=== PATIENT | female | born 1970 | race Caucasian/White ===

== ENCOUNTER 2018-06-23 08:07 | Outpatient (CLI) | payer BC | END 2018-06-23 08:08 | disposition home or self-care (01) | LOC: BICMAMMO 08:07 | PROVIDERS: ATTEND Obstetrics & Gynecology | DX: Z12.31 Encounter for screening mammogram for malignant neoplasm of breast (principal); Z80.3 Family history of malignant neoplasm of breast | CPT/HCPCS: 77063; 77067 ==

== ENCOUNTER 2019-01-08 20:27 | Emergency (ER) | payer BC ==
[2019-01-08 21:07] LABS: #Basophils 0.1 thou/uL (0.0-0.2); #Eosinphils 0.3 thou/uL (0.0-0.7); #Lymphocytes 3.2 thou/uL (1.20-3.40); #Monocytes 0.7 thou/uL (0.11-0.59); #Neutrophils 4.3 thou/uL (1.40-6.50); %Basophils 1.4 % (0.0-1.0); %Eosinophils 3.9 % (0.0-10.0); %Lymphocytes 37.1 % (21.0-51.0); %Monocytes 7.9 % (0.0-10.0); %Neutrophils 49.7 % (42.0-75.0); Hemoglobin 11.2 g/dL (12.0-16.0); Mean Corpuscular HGB CONC 32.8 g/dL (32.0-36.0); Mean Corpuscular Volume 79.3 fL (78.0-98.0); Mean Platelet Volume 8.9 fL (7.4-10.4); Platelet Count 348 thou/uL (130-400); RBC Distribution Width 14.7 % (11.5-14.5); White Blood Cell (WBC) Count 8.7 thou/uL (4.8-10.8)
--- NOTE | 2019-01-08 21:19 | RAD ---
CHEST ONE VIEW: 01/08/19 HISTORY: Chest pain. COMPARISON: None. FINDINGS: Lungs are clear. No pneumothorax or effusion. The cardiac silhouette and mediastinal contours are wit hin normal limits. IMPRESSION: No acute intrathoracic abnormality. POS: [facility]
[2019-01-08 21:29] LABS: ALT (SGPT) 12 U/L (8-55); AST (SGOT) 13 U/L (5-34); Albumin 4.4 g/dL (3.5-5.0); Alkaline Phosphatase 59 U/L (40-150); Anion Gap 9 mmol/L (10-20); BUN (Urea Nitrogen) 12 mg/dL (7.0-18.7); Bilirubin, Total 0.2 mg/dL (0.2-1.2); CK (CPK) 76 U/L (29-168); Calc. Creatinine Clearance 0 mL/min (70-130); Calcium 9.6 mg/dL (7.8-10.44); Carbon Dioxide 25 mmol/L (22-29); Chloride 106 mmol/L (98-107); Estimated GFR-MDRD 55; Globulin 3.5 g/dL (2.4-3.5); Glucose 89 mg/dL (70-105); Lipase 48 U/L (8-78); Potassium 3.2 mmol/L (3.5-5.1); Protein, Total 7.9 g/dL (6.0-8.3); Sodium 137 mmol/L (136-145)
== END 2019-01-08 22:30 | disposition home or self-care (01) ==
LOC: ERS 20:27
DX: R07.89 Other chest pain (principal); F90.9 Attention-deficit hyperactivity disorder, unspecified type; Z79.899 Other long term (current) drug therapy
CPT/HCPCS: 71045; 80053; 82550; 83690; 84484; 85025; 93005; 94760

== ENCOUNTER 2019-08-04 08:06 | Outpatient (CLI) | payer BC ==
--- NOTE | 2019-08-04 08:45 | MMO ---
Bilateral MAMMO Bilat Screen [facility]. CLINICAL HISTORY: Patient is 48 years old and is seen for screening. The patient has the following family history of breast cancer: 2 paternal aunts. The patient has no personal history of cancer. VIEWS: The views performed were: bilateral craniocaudal with tomosynthesis and bilateral mediolateral oblique with tomosynthesis. FILMS COMPARED: The present examination has been compared to prior imaging studies performed at [facility] on 10/11/2014, 04/19/2016, 04/21/2017 and 06/23/2018. MAMMOGRAM FINDINGS: There are scattered fibroglandular densities. There are no suspicious masses, suspicious calcifications, or new areas of architectural distortion. IMPRESSION: THERE IS NO MAMMOGRAPHIC EVIDENCE OF MALIGNANCY. A ROUTINE FOLLOW-UP MAMMOGRAM IN 1 YEAR IS RECOMMENDED. THE RESULTS OF THIS EXAM WERE SENT TO THE PATIENT. ACR BI-RADS Category 1 - Negative MAMMOGRAPHY NOTE: 1. A negative mammogram report should not delay a biopsy if a dominant of clinically suspicious mass is present. 2. Approximately 10% to 15% of breast cancers are not detected by mammography. 3. Adenosis and dense breasts may obscure an underlying neoplasm. Reported by: MEHUL ZAMUDIO MD Electonically Signed: [id number]
== END 2019-08-04 08:07 | disposition home or self-care (01) ==
LOC: BICMAMMO 08:06
PROVIDERS: ATTEND Obstetrics & Gynecology
DX: Z12.31 Encounter for screening mammogram for malignant neoplasm of breast (principal); Z80.3 Family history of malignant neoplasm of breast
CPT/HCPCS: 77063; 77067

== ENCOUNTER 2021-08-29 12:46 | Outpatient (CLI) | payer BC ==
[~2021-08-29 12:46] MED LIST: Magnevist 469MG/ML 20 ML VIAL ONE
== END 2021-08-29 12:47 | disposition home or self-care (01) ==
LOC: MRI 12:46
PROVIDERS: ATTEND Surgery
DX: D33.2 Benign neoplasm of brain, unspecified (principal); R51.9 Headache, unspecified; G93.6 Cerebral edema
CPT/HCPCS: 70553

== ENCOUNTER 2022-04-01 10:37 | Outpatient (CLI) | payer BC | END 2022-04-01 10:38 | disposition home or self-care (01) | LOC: MRI 10:37 | PROVIDERS: ATTEND Surgery | DX: D33.2 Benign neoplasm of brain, unspecified (principal); R51.9 Headache, unspecified | CPT/HCPCS: 70553; A9579 ==

== ENCOUNTER 2022-04-10 08:33 | Outpatient (CLI) | payer BC ==
[2022-04-10 10:09] LABS: Hemoglobin 12.2 g/dL (12.0-15.5); Mean Corpuscular HGB CONC 33.1 g/dL (32.0-36.0); Mean Corpuscular Hemoglobin 27.7 pg (27.0-33.0); Mean Corpuscular Volume 83.9 fl (81.6-98.3); Platelet Count 311 10x3/uL (150-450); RBC Distribution Width 14.9 % (11.5-14.5); White Blood Cell (WBC) Count 4.5 10x3/uL (3.5-10.5)
[2022-04-10 10:27] LABS: Anion Gap 11 mmol/L (10-20); BUN (Urea Nitrogen) 15 mg/dL (9.8-20.1); Calc. Creatinine Clearance 0 mL/min (70-130); Calcium 9.1 mg/dL (7.8-10.44); Carbon Dioxide 26 mmol/L (22-29); Chloride 106 mmol/L (98-107); Glucose 86 mg/dL (70-105); Potassium 4.2 mmol/L (3.5-5.1); Sodium 139 mmol/L (136-145)
[2022-04-10 10:30] LABS: INR-International Normal Ratio 0.9; PTT 25.9 sec (22.0-33.0); Prothrombin Time 10.2 sec (9.5-12.1)
[2022-04-10 16:07] LABS: SARS-CoV-2 PCR by NAA Not Detected (NotDetected)
== END 2022-04-10 08:34 | disposition home or self-care (01) ==
LOC: LABBT 08:33
PROVIDERS: ATTEND Surgery
DX: Z01.818 Encounter for other preprocedural examination (principal); D33.2 Benign neoplasm of brain, unspecified; Z20.822 Contact with and (suspected) exposure to COVID-19
CPT/HCPCS: 80048; 85027; 85610; 85730; 93005; 93010; U0003; U0005

== ENCOUNTER 2022-04-10 08:45 | Inpatient (IN) | payer BC ==
[2022-04-10 09:41] VITALS: BMI 27.4
[2022-04-12] MEDS ORDERED: ceFAZolin (BATCH) 2 GM/100 ML BAG ONE ×2 (08:41→10:31)
[2022-04-12] MEDS ORDERED: Lidocaine 1% MPF 2 ML VIAL ONE (08:42)
[2022-04-12] MEDS ORDERED: Fentanyl 250 MCG/5 ML VIAL ONE (09:28)
[2022-04-12] MEDS ORDERED: levETIRAcetam in NS 100 ML ONE (09:28)
[2022-04-12] MEDS ORDERED: Propofol 1,000 MG/100 ML VIAL IV ONE (09:28)
[2022-04-12] MEDS ORDERED: Thrombin 5000 UNITS/5 ML VIAL ONE (10:16)
[2022-04-12] MEDS ORDERED: Bacitracin Zinc Ointment 30 gm TUBE ONE (10:16)
[2022-04-12] MEDS ORDERED: Mannitol 12.5 GM/50 ML ONE (10:17)
[2022-04-12] MEDS ORDERED: Rocuronium Bromide 10 MG/ML (10ML VIAL) ONE (10:44)
[2022-04-12] MEDS ORDERED: Dexamethasone 20 MG/5 ML VIAL ONE (10:44)
[2022-04-12] MEDS ORDERED: PHENYLEPHRINE-NS 100 MCG/ML 10 ML SYRINGE ONE (10:44)
[2022-04-12] MEDS ORDERED: Lidocaine 1% PF 5 ML VIAL ONE ×2 (10:44)
[2022-04-12] MEDS ORDERED: ePHEDrine 50 MG/ML VIAL ONE (10:44)
[2022-04-12] MEDS ORDERED: Esmolol 100 MG/10 ML VIAL ONE (10:44)
[2022-04-12] MEDS ORDERED: Ondansetron PF 4 MG/2 ML Vial ONE (10:44)
[2022-04-12] MEDS ORDERED: PROPOFOL 200 MG/20 ML VIAL ONE (10:44)
[2022-04-12] MEDS ORDERED: Lidocaine 1% w/Epinephrine 1:100K 20 ML VIAL ONE (11:25)
[2022-04-12] MEDS ORDERED: Phenylephrine 10 MG/ML VIAL ONE (11:52)
[2022-04-12] MEDS ORDERED: Ondansetron HCl/PF 4 MG/2 ML Vial IVP PRN (14:39)
[2022-04-12] MEDS ORDERED: Promethazine HCl 25 MG/ML VIAL IM PRN ×2 (14:39→15:09)
[2022-04-12] MEDS ORDERED: HYDROmorphone 2 MG/ML VIAL SLOW IVP PRN (14:39)
[2022-04-12] MEDS ORDERED: Promethazine HCl 25 MG/ML VIAL IVPB PRN (14:39)
[2022-04-12] MEDS ORDERED: SUGAMMADEX SODIUM 200 MG/2 ML VIAL ONE (14:49)
[2022-04-12] MEDS ORDERED: Docusate 100 MG CAP PO PRN (15:09)
[2022-04-12] MEDS ORDERED: hydrALAZINE 20 MG/ML VIAL SLOW IVP PRN (15:09)
[2022-04-12] MEDS ORDERED: Cepastat Lozenges 1 LOZ PO PRN (15:09)
[2022-04-12] MEDS ORDERED: Ondansetron PF 4 MG/2 ML Vial IVP PRN (15:09)
[2022-04-12] MEDS ORDERED: Acetaminophen 325 MG TAB PO PRN (15:09)
[2022-04-12] MEDS ORDERED: Labetalol HCl 100 MG/20 ML VIAL SLOW IVP PRN (15:09)
[2022-04-12] MEDS: Sodium Chloride 0.9% 1,000 ML IV SCH (16:45)
[2022-04-12] MEDS: Morphine 2 MG/ML VIAL SLOW IVP PRN ×2 (16:46→20:20)
[2022-04-12] MEDS: ceFAZolin (BATCH) 2 GM in Premix Bag 1 BAG IVPB SCH (18:33)
[2022-04-12] MEDS: HYDROcodone/Acetaminophen 7.5/325 mg Tablet PO PRN (18:34)
[2022-04-12] MEDS: levETIRAcetam 500 MG TAB PO SCH (20:29)
[2022-04-12] MEDS: Acetaminophen/Codeine 30-300mg Tablet PO PRN (22:42)
[2022-04-12] MEDS: Zolpidem Tartrate 5 MG TAB PO SCH (22:43)
[2022-04-12] MEDS ORDERED: Dexamethasone 4 mg/ml Vial SLOW IVP SCH (23:00)
[2022-04-13] MEDS: ceFAZolin (BATCH) 2 GM in Premix Bag 1 BAG IVPB SCH ×3 (02:15→18:49)
[2022-04-13] MEDS: diphenhydrAMINE 25 MG CAP PO PRN ×4 (02:16→21:23)
[2022-04-13] MEDS: HYDROcodone/Acetaminophen 7.5/325 mg Tablet PO PRN ×2 (02:23→23:37)
[2022-04-13] MEDS: Morphine 2 MG/ML VIAL SLOW IVP PRN ×3 (03:29→04:42)
[2022-04-13 03:55] LABS: #Basophils 0.1 thou/uL (0.0-0.2); #Lymphocytes 0.6 thou/uL (1.20-3.40); #Monocytes 0.2 thou/uL (0.11-0.59); #Neutrophils 9.2 thou/uL (1.40-6.50); %Basophils 0.8 % (0.0-1.0); %Eosinophils 0.1 % (0.0-10.0); %Lymphocytes 5.9 % (21.0-51.0); %Monocytes 1.5 % (0.0-10.0); %Neutrophils 91.6 % (42.0-75.0); Hemoglobin 12.1 g/dL (12.0-16.0); Mean Corpuscular HGB CONC 32.7 g/dL (32.0-36.0); Mean Corpuscular Volume 88.9 fL (78.0-98.0); Mean Platelet Volume 8.4 fL (7.4-10.4); Platelet Count 283 thou/uL (130-400); RBC Distribution Width 13.7 % (11.5-14.5); Red Blood Cell (RBC) Count 4.17 mill/uL (4.20-5.40); White Blood Cell (WBC) Count 10.1 thou/uL (4.8-10.8)
[2022-04-13 04:13] LABS: Anion Gap 14 mmol/L (10-20); BUN (Urea Nitrogen) 14 mg/dL (9.8-20.1); Calc. Creatinine Clearance 78 mL/min (70-130); Calcium 8.3 mg/dL (7.8-10.44); Carbon Dioxide 22 mmol/L (22-29); Chloride 110 mmol/L (98-107); Glucose 124 mg/dL (70-105); Potassium 4.1 mmol/L (3.5-5.1); Sodium 142 mmol/L (136-145)
[2022-04-13] MEDS: Sodium Chloride 0.9% 1,000 ML IV SCH ×2 (04:42→17:18)
[2022-04-13] MEDS: Dexamethasone 4 MG TAB PO SCH ×4 (05:50→23:37)
[2022-04-13] MEDS: Thyroid 30 MG TAB PO SCH (05:50)
[2022-04-13] MEDS: Acetaminophen/Codeine 30-300mg Tablet PO PRN ×3 (09:09→19:35)
[2022-04-13] MEDS: levETIRAcetam 500 MG TAB PO SCH ×2 (09:10→21:23)
[2022-04-13] MEDS: Zolpidem Tartrate 5 MG TAB PO SCH (21:23)
[2022-04-14] MEDS: ceFAZolin (BATCH) 2 GM in Premix Bag 1 BAG IVPB SCH ×3 (03:02→16:52)
[2022-04-14] MEDS: Thyroid 30 MG TAB PO SCH (06:22)
[2022-04-14] MEDS: HYDROcodone/Acetaminophen 7.5/325 mg Tablet PO PRN (06:22)
[2022-04-14] MEDS: Dexamethasone 4 MG TAB PO SCH ×3 (06:22→16:52)
[2022-04-14] MEDS: Sodium Chloride 0.9% 1,000 ML IV SCH ×2 (08:09→21:04)
[2022-04-14] MEDS: levETIRAcetam 500 MG TAB PO SCH ×2 (09:48→21:06)
[2022-04-14] MEDS ORDERED: traMADol HCl 50 MG TAB PO PRN (12:02)
[2022-04-14] MEDS: diphenhydrAMINE 25 MG CAP PO PRN ×2 (12:51→19:52)
[2022-04-14] MEDS: traMADol HCl 50 MG TAB PO PRN (19:52)
[2022-04-14] MEDS: Zolpidem Tartrate 5 MG TAB PO SCH (21:06)
[2022-04-15] MEDS: Dexamethasone 4 MG TAB PO SCH (00:06)
[2022-04-15] MEDS: ceFAZolin (BATCH) 2 GM in Premix Bag 1 BAG IVPB SCH (03:06)
[2022-04-15] MEDS: traMADol HCl 50 MG TAB PO PRN (03:06)
[2022-04-15] MEDS: diphenhydrAMINE 25 MG CAP PO PRN ×2 (03:44→09:26)
[2022-04-15] MEDS: Thyroid 30 MG TAB PO SCH (05:44)
[2022-04-15] MEDS: Dexamethasone 1 MG TAB PO SCH ×2 (05:45→13:19)
[2022-04-15] MEDS: levETIRAcetam 500 MG TAB PO SCH (09:26)
[2022-04-15 16:55] VITALS: BP 102/67; TEMP 98.1
[2022-04-15] MEDS: PHENTERMINE HCL 37.5 MG PO SCH (18:21)
[2022-04-15] MEDS: Semaglutide [Rybelsus] 14 MG Tablet PO SCH (18:22)
[2022-04-15] MEDS: Sodium Chloride 0.9% 1,000 ML IV SCH (18:22)
[2022-04-17] MEDS ORDERED: Dexamethasone 1 MG TAB PO SCH (06:00)
[2022-04-19] MEDS ORDERED: Dexamethasone 1 MG TAB PO SCH (06:00)
== END 2022-04-15 16:40 | disposition home or self-care (01) | DRG 26 ==
LOC: SURG A 04-12 07:57 → CCU 04-12 16:48 → SURG B 04-13 10:32
PROVIDERS: ADMIT Surgery; ATTEND Surgery
PROC: 00B10ZZ Excision of Cerebral Meninges, Open Approach (ICD-10-PCS; principal; 2022-04-14)
PROC: 00Q20ZZ Repair Dura Mater, Open Approach (ICD-10-PCS; 2022-04-14)
DX: D32.0 Benign neoplasm of cerebral meninges (principal); R47.01 Aphasia; R43.0 Anosmia; Z20.822 Contact with and (suspected) exposure to COVID-19; R73.03 Prediabetes; L65.9 Nonscarring hair loss, unspecified; L29.8 Other pruritus; Z98.890 Other specified postprocedural states; Z88.5 Allergy status to narcotic agent
CPT/HCPCS: 36415; 70450; 80048; 85025; 88307; 88331; 88334; 93970; C1713; C1776; J0690; J1100; J1165; J1953; J2150; J2270; J2370; J2405; J2704; J3010; J3370; J3490; J7050; J8540

== ENCOUNTER 2022-07-30 08:14 | Outpatient (CLI) | payer BC ==
[2022-07-30] MEDS ORDERED: Magnevist 469MG/ML 20 ML VIAL ONE (09:36)
== END 2022-07-30 08:15 | disposition home or self-care (01) ==
LOC: MRI 08:14
PROVIDERS: ATTEND Surgery
DX: D32.0 Benign neoplasm of cerebral meninges (principal); G97.82 Other postprocedural complications and disorders of nervous system; Z98.890 Other specified postprocedural states
CPT/HCPCS: 70450; 70553; A9579

== ENCOUNTER 2022-10-31 14:00 | Outpatient (CLI) | payer BC ==
[2022-10-31] MEDS ORDERED: Magnevist 469MG/ML 20 ML VIAL ONE (15:06)
== END 2022-10-31 14:01 | disposition home or self-care (01) ==
LOC: TBSIIMAG 14:00
PROVIDERS: ATTEND Surgery
DX: D32.9 Benign neoplasm of meninges, unspecified (principal); Z98.890 Other specified postprocedural states
CPT/HCPCS: 70553; A9579

== ENCOUNTER 2023-01-27 08:14 | Outpatient (CLI) | payer BC ==
[2023-01-27] MEDS ORDERED: Iopamidol 370 76% 100 ML VIAL ONE (08:36)
== END 2023-01-27 08:15 | disposition home or self-care (01) ==
LOC: BICCT 08:14
PROVIDERS: ATTEND Urology
DX: R31.9 Hematuria, unspecified (principal)
CPT/HCPCS: 74178; Q9967

== ENCOUNTER 2023-02-21 08:02 | Outpatient (CLI) | payer BC | END 2023-02-21 08:03 | disposition home or self-care (01) | LOC: BICCT 08:02 | PROVIDERS: ATTEND Surgery | DX: D32.9 Benign neoplasm of meninges, unspecified (principal); Z98.890 Other specified postprocedural states | CPT/HCPCS: 70450 ==